=== PATIENT | male | born 1985 | race Caucasian/White ===

== ENCOUNTER 2021-05-21 19:27 | Emergency (ER) | payer OTHER, SELFPAY ==
--- NOTE | ~2021-05-21 | XR_ITS ---
EXAMINATION: XR tibia fibula LT 2V DATE: 05/21/2021 20:16 INDICATION: Left lower leg dog bite and pain. TECHNIQUE: 2 views of left tibia and fibula on 4 radiographs were obtained. COMPARISON: None. FINDINGS: Bone alignment is normal. No fracture. There is mild osteoarthritis of patellofemoral evelyn rtment of the knee. There is a laceration anterior to the proximal tibia. IMPRESSION: 1. No fracture or radiopaque foreign body. Reviewed, dictated and finalized at location A.
[2021-05-21 19:20] VITALS: BP 169/89; PULSE 71; RESP 20; TEMP 37.4; O2SAT 99
[2021-05-21] MEDS: TETANUS,DIPHTHERIA,AC PERTUSSIS ADULT (0.5 ML) BOOSTRIX IM (20:04)
--- NOTE | 2021-05-21 21:11 | ED.LOWEXIN ---
HPI - Extremity Injury (Lower) General Chief Complaint: Animal Bite Stated Complaint: quarter size dog bite LLL Time Seen by Provider: 05/21/21 19:42 Source: patient Mode of arrival: ambulatory Limitations: no limitations History of Present Illness HPI Narrative: This is a 35 year old male that presents to the ER for dog bite to the left leg. 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 Reports he was standing in someone's front yard and their dog ran out of the house and bit him on the leg. He is unsure if the dog is up-to-date on vaccinations. He himself is not up-to-date on his tetanus vaccine. Denies decreased range of motion or numbness. Related Data Allergies Allergy/AdvReac Type Severity Reaction Status Date / Time Penicillins Allergy Unknown Verified 06/05/17 14:19 Review of Systems Review of Systems: CONSTITUTIONAL: Denies fever SKIN: Reports laceration MUSCULOSKELETAL: Denies joint pain, or myalgia. NEUROLOGIC: Denies numbness All systems reviewed & are unremarkable except as noted in HPI and below PMFSH Social History Social History (Updated 05/21/21 @ 21:14 by Karen Waters PA-C) Smoking status: Never smoker Substance use: never Exam Narrative: GENERAL: Well-appearing, well-nourished, and in no acute distress. HEAD: Normocephalic, atraumatic. EYES: EOMI. EXTREMITIES: Normal range of motion. No edema. Left lower leg with (2cm) irregular puncture wound over the yusuf into subcutaneous tissue SKIN: Warm, dry, no rash. NEURO: No focal deficits. Alert and oriented x3. PSYCH: Normal mood and affect Course Vital Signs Vital signs: Vital Signs Temperature 99.3 F 05/21/21 19:20 Pulse Rate 71 05/21/21 19:20 Respiratory Rate 20 05/21/21 19:20 Blood Pressure 169/89 H 05/21/21 19:20 Pulse Oximetry 99 05/21/21 19:20 Temperature 99.3 F 05/21/21 19:20 Pulse Rate 55 L 05/21/21 21:24 Respiratory Rate 16 05/21/21 21:24 Blood Pressure 151/83 H 05/21/21 21:24 Pulse Oximetry 99 05/21/21 21:24 Procedures Laceration Laceration 1: Date: 05/21/21 Time: 21:50 Site: lower extremity Side (If applicable): left Size (cm): 2 Description: irregular Depth: simple, single layer Local Anesthetic: lidocaine 1% and with epi Amount of anesthesia used (mL): 3 Pre-repair: irrigated extensively ====== Skin Level ====== Skin layer closed with: nylon Size (cm): 3-0 Number of sutures: 1 Technique: simple, interrupted ====== Subcutaneous Layer ====== ====== Muscle Layer ====== ====== Tendon Layer ====== MDM - Extremity Injury (Lower) MDM Narrative Medical decision making narrative: Patient presents the emergency department for a dog bite sustained just prior to arrival. Left tib-fib x-ray is without acute osseous abnormalities or evidence of radiopaque foreign body. Wound was thoroughly irrigated. I did approximate the wound a little bit better with 1 suture. Patient was updated on tetanus. He was educated on wound care. He will be started on oral antibiotics. He was instructed to follow-up with animal control for further evaluation of the dog's vaccination status. He is to follow-up with primary care doctor. He was given warnings to return to the ER Imaging Data Radiologist's impression: ITS Impressions Tibia/Fibula X-Ray 05/21/21 20:25 IMPRESSION: 1. No fracture or radiopaque foreign body. Critical Care Time Critical Care Time Critical Care Time: No Discharge Plan Discharge Clinical Impression: Dog bite Qualifiers: Encounter type: initial encounter Qualified Code(s): W54.0XXA - Bitten by dog, initial encounter Patient Disposition: Home, Self-Care Condition: Stable Instructions: Antibiotic Form, Animal Bite (ED), Care For Your Stitches (ED) Additional Instructions: Return to the emergency department if you experience fe
[2021-05-21 21:24] VITALS: BP 151/83; PULSE 55; RESP 16; O2SAT 99
[2021-05-21] MEDS: metroNIDAZOLE 250 MG TABLET 500 MG PO (22:07)
[2021-05-21 22:22] VITALS: BP 141/87; PULSE 60; RESP 14; O2SAT 100
== END 2021-05-21 22:14 | disposition home or self-care (01) ==
PROVIDERS: Emergency Provider Emergency Medicine; PCP Internal Medicine
DX: S81.852A Open bite, left lower leg, initial encounter (principal); W54.0XXA Bitten by dog, initial encounter; Z23 Encounter for immunization
CPT/HCPCS: 12001; 73590; 90471; 90715; 99283; A9270